=== PATIENT | male | born 1995 | race Caucasian/White ===

== ENCOUNTER 2017-01-20 10:24 | Day surgery (SDC) | payer BC ==
[2017-01-20] MEDS ORDERED: CHLORHEXIDINE GLUC HIBICLENS 118 ML BTL TP ONE ×2 (10:58)
[2017-01-20] MEDS ORDERED: LIDOCAINE 1% 2 ML INJ ONE ×2 (10:58)
[2017-01-20] MEDS ORDERED: LIDOCAINE 1% 2 ML INJ ID PRN ×2 (11:13)
[2017-01-20] MEDS ORDERED: LR 1,000 ML IV ONE ×2 (11:13)
[2017-01-20] MEDS ORDERED: MIDAZOLAM 2 MG/2 ML VIAL IVP ONE ×2 (11:30)
--- NOTE | 2017-01-20 11:30 | PDANEPAE ---
ANE Past Medical History - Cardiovascular History Hx Hypertension: No Hx Arrhythmias: No Hx Chest Pain: No Hx Coronary Artery / Peripheral Vascular Disease: No Hx CHF / Valvular Disease: No Hx Palpitations: No - Pulmonary History Hx COPD: No Hx Asthma/Reactive Airway Disease: No Hx Recent Upper Respiratory Infection: No Hx Oxygen in Use at Home: No Hx Sleep Apnea: No Sleep Apnea Screening Result - Last Documented: Negative - Neurologic History Hx Cerebrovascular Accident: No Hx Seizures: No Hx Dementia: No - Endocrine History Hx Diabetes: No - Renal History Hx Renal Disorders: No - Liver History Hx Hepatic Disorders: No - Neurological & Psychiatric Hx Hx Neurological and Psychiatric Disorders: No - Cancer History Hx Cancer: No - Congenital Disorder History Hx Congenital Disorders: No - GI History Hx Gastrointestinal Disorders: No - Other Health History Other Health History: neg - Chronic Pain History Chronic Pain: No - Surgical History Prior Surgeries: labrum surgery shoulder R 05/2016 calif ANE Review of Systems Review of Systems: - Exercise capacity METS (RN): 5 METS ANE Patient History - Allergies Allergies/Adverse Reactions: peanut Allergy (Severe, 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
[2017-01-20] MEDS ORDERED: fentaNYL 100 MCG/2 ML INJ IVP PRN ×2 (11:43)
[2017-01-20] MEDS ORDERED: DEXAMETHASONE 4 MG/ML VIAL IVP PRN ×2 (11:43)
[2017-01-20] MEDS ORDERED: NALOXONE HCL 0.4 MG/ML INJ IVP PRN ×2 (11:43)
[2017-01-20] MEDS ORDERED: HYDROmorphONE/DILAUDID 1 MG/ML INJ IVP PRN ×2 (11:43)
[2017-01-20] MEDS ORDERED: LR 500 ML IV PRN ×2 (11:43)
[2017-01-20] MEDS ORDERED: ONDANSETRON 4 MG/2 ML VIAL IVP PRN ×2 (11:43)
[2017-01-20] MEDS ORDERED: ALBUTEROL 3 ML DEYVIAL IH PRN ×2 (11:43)
[2017-01-20] MEDS ORDERED: BUPIVACAINE 0.5% 30 ML SDV ONE ×2 (11:50)
[2017-01-20] MEDS ORDERED: fentaNYL 100 MCG/2 ML INJ ONE ×2 (11:53)
[2017-01-20] MEDS ORDERED: PROPOFOL/EMULSION 500 MG/50 ML BOTTLE IV ONE ×2 (11:54)
--- NOTE | 2017-01-20 11:55 | PDHPUP ---
History & Physical Update H&P update statement: This history and physical update is based on an assessment of the patient which was completed after admission or registration (within 24 hours), but prior to the surgery/procedure.
--- NOTE | 2017-01-20 11:57 | POSTOPPROG ---
Post Op Note Date of Operation: 01/20/17 Surgeon: Ernesto Adams [employer] Operations Manager: none Anesthesiologist: none Anesthesia: Local (Specify) (Marcaine 0.5 %, 4cc total) Pre-op Diagnosis: Left small mallet fracture Post-op Diagnosis: same Indication: displaced fracture Procedure: fluoroscopic reduction and K wire fixation Findings: displaced fracture Inf/Abcess present in the surg proc area at time of surgery?: No Depth: Deep Incisional (Fascial) EBL: Minimal Total fluids administered: none
--- NOTE | 2017-01-20 13:16 | POSTANESTH ---
Post Anesthetic Evaluation Cardiovascular Status: Normal, Stable Respiratory Status: Normal, Stable Level of Consciousness/Mental Status: Can Participate in Eval Pain Control: Adequate, Prn Tx Ordered Nausea/Vomiting Control: Adequate, Prn Tx Ordered Complications Possibly Related to Anesthesia: None Noted
--- NOTE | 2017-01-20 13:49 | GOP ---
[f rep st] OPERATIVE REPORT DATE OF OPERATION: 01/20/2017 SURGEON: Ernesto Adams MD PREOPERATIVE DIAGNOSIS: Left small finger intra-articular mallet fracture. POSTOPERATIVE DIAGNOSIS: Left small finger intra-articular mallet fracture. PROCEDURE PERFORMED: Open reduction and K-Wire fixation of articular fracture. FINDINGS: INDICATIONS: This fracture would not reduce into acceptable alignment under fluoroscopic control and it was felt that after several tries an open procedure was needed to adequately reduce the articular fragment back into position. DESCRIPTION OF PROCEDURE: Under general anesthesia, the patient's left arm was prepped and draped in the usual fashion and [place] drain tourniquet was applied at the base of the left small finger. Fl uoroscopic visualization revealed that the subluxation of the base of the distal phalanx on the head of the middle phalanx was possible, but fracture fragment reduction to create a smooth articular surf conor was not possible. For that reason a Y-shaped incision was made over the dorsal aspect of the left small finger at the D IP joint level. Skin flaps were elevated. The extensor mechanism, which had retracted proximally, w as elevated and the extensor tendon along with the articular fragment was brought down and reduced in to good position at the base of the distal phalanx. With the fragment compressed into good position, the distal phalanx was then relocated onto the head of the middle phalanx, hyperextended a small [place] unt and then K-Wire fixated. Two longitudinal K-Wires were placed, 1 as a buttress pin, 1 as a trans articular fixation pin and those pins resulted in very nice alignment of the DIP joint and the fractu re fragment. K-Wires were cut off just below skin level and then the wound was extensively irrigated with body tem perature saline. Then, the skin flaps were suture approximated with 5-0 Prolene and then a bulky sof t pressure dressing was applied, followed by an ulnar gutter fiberglass splint held in place with an [place] bandage. Jenna drain tourniquet removal had resulted in immediate pinking of the digit. He wa s brought to the recovery area where detailed instructions were given prior to discharge. A prescription for [place] and Keflex was provided. He had been given a gram of Ancef prior to commenc ement of surgery. Followup arrangements in the office for about a week postoperative for dressing an d suture removal and then wrap-around foam aluminum splint application for the small finger. PROPOSED OPERATION: Fluoroscopic reduction and percutaneous K-Wire fixation. /[id number]/MODL
[2017-01-20 13:59] VITALS: O2SAT 96
[2017-01-20 14:19] VITALS: BP 123/71; PULSE 75; RESP 18; TEMP 97.7
== END 2017-01-20 14:20 | disposition home or self-care (01) ==
LOC: FSGY 10:24
PROVIDERS: ATTEND Specialist
PROC: 0PSV04Z Reposition Left Finger Phalanx with Internal Fixation Device, Open Approach (ICD-10-PCS; principal; 2017-01-20 11:45)
DX: S62.637A Displaced fracture of distal phalanx of left little finger, initial encounter for closed fracture (principal); Y93.61 Activity, american tackle football; Z53.39 Other specified procedure converted to open procedure
CPT/HCPCS: C1713; J2250; J2704; J3010

== ENCOUNTER → 2017-06-29 | Outpatient (CLI) | payer BC | LOC: BMCIMAGING 17:53 | PROVIDERS: ATTEND Family Medicine | DX: S62.332A Displaced fracture of neck of third metacarpal bone, right hand, initial encounter for closed fracture (principal) ==